=== PATIENT | female | born 1950 | race Caucasian/White ===

== ENCOUNTER 2020-06-07 08:04 | Outpatient (CLI) | payer MEDICARE, BC | END 2020-06-07 08:05 | disposition home or self-care (01) | LOC: CSHCT 08:04 | PROVIDERS: ATTEND Physician Assistant Medical | DX: R19.09 Other intra-abdominal and pelvic swelling, mass and lump (principal); K31.89 Other diseases of stomach and duodenum; K31.5 Obstruction of duodenum | CPT/HCPCS: 74160; 82565 ==